=== PATIENT | male | born 1985 | race Caucasian/White ===

== ENCOUNTER 2017-12-01 10:17 | Emergency (ER) | payer BC, OTHER ==
[~2017-12-01] VITALS: Ht 185.4 cm; Wt 97.1 kg
[2017-12-01 14:27] VITALS: BP 148/123
== END 2017-12-01 14:28 | disposition home or self-care (01) ==
LOC: ER 10:17
DX: S00.83XA Contusion of other part of head, initial encounter (principal); S09.90XA Unspecified injury of head, initial encounter; J45.909 Unspecified asthma, uncomplicated; F17.210 Nicotine dependence, cigarettes, uncomplicated; V00.131A Fall from skateboard, initial encounter; Y93.89 Activity, other specified; Y92.89 Other specified places as the place of occurrence of the external cause; Y99.8 Other external cause status
CPT/HCPCS: 70450

== ENCOUNTER 2017-12-27 18:52 | Inpatient (IN) | payer BC ==
[~2017-12-27] VITALS: Ht 185.4 cm; Wt 100.2 kg
[2017-12-27] MEDS ORDERED: cloNIDine HCL 0.1 MG TAB ONE (19:28)
[2017-12-27] MEDS ORDERED: cloNIDine HCL 0.1 MG TAB PO ONE (20:00)
[2017-12-27] MEDS ORDERED: LORazepam 2MG/ML-1ML VIAL ONE ×2 (22:09→22:17)
[2017-12-27] MEDS ORDERED: LORazepam 2MG/ML-1ML VIAL IV ONE ×5 (22:15→22:30)
[2017-12-27] MEDS ORDERED: SODIUM CHLORIDE 0.9% 1,000 ML IV ONE (22:15)
[2017-12-27] MEDS ORDERED: SODIUM CHLORIDE 0.9% 1,000 ML IVB ONE (22:18)
[2017-12-27] MEDS ORDERED: LIDOCAINE W/ EPINEPHRINE 2% INJ 20ML VIAL ONE (22:38)
[2017-12-27 22:58] LABS: Basophils # (auto) 0 uL; Basophils % (auto) 0.3 % (0.0-2.0); Eosinophils # (auto) 0 uL; Eosinophils % (auto) 0.2 % (0.0-7.0); Hematocrit 41.6 % (41.0-53.0); Hemoglobin 14.3 g/dL (13.5-17.5); Lymphocytes # (auto) 0.6 uL; Lymphocytes % (auto) 5.1 % (10.0-50.0); Mean Corpuscular Hemoglobin 33.1 pg (28.0-32.0); Mean Corpuscular Hgb Conc. 34.4 g/dL (32.0-36.0); Mean Corpuscular Volume 96.2 fL (80.0-100.0); Monocytes % (auto) 8.4 % (0.0-12.0); Neutrophils # (auto) 9.9 uL; Nucleated Red Blood Cells % 0.1 %; Red Blood Cells 4.32 10^6/uL (4.5-5.90); Red Cell Distribution Width 13.7 % (11.8-14.3); White Blood Cell 11.6 10^3/uL (4.4-10.8)
[2017-12-27 23:04] LABS: Platelet Count (auto) 132 10^3/uL (140-450)
[2017-12-27 23:08] LABS: INR 1.04 (0.9-1.15); Partial Thromboplastin Time 24.7 sec (22.64-33.71); Prothrombin Time 11.3 sec (9.37-12.3)
[2017-12-27 23:21] LABS: Alanine Aminotransferase 106 U/L (16-61); Albumin 4.4 g/dL (3.4-5.0); Alkaline Phosphatase 81 U/L (45-117); Anion Gap 15 (5-15); Aspartate Aminotransferase 151 U/L (15-37); BUN/Creatinine Ratio 10.2; Bilirubin, Total 1.6 mg/dL (0.2-1.0); Blood Alcohol < 3.0 mg/dL (0-5); Blood Urea Nitrogen 10 mg/dL (7-18); Calcium 8.9 mg/dL (8.5-10.1); Carbon Dioxide 20 mmol/L (21-32); Chloride 99 mmol/L (98-107); GFR African American 113 mL/min; GFR Non-African American 93 mL/min; Glucose 136 mg/dL (74-106); Magnesium 1.7 mg/dL (1.6-2.6); Potassium 3.9 mmol/L (3.5-5.1); Sodium 134 mmol/L (136-145); Total Protein 8.1 g/dL (6.4-8.2)
[2017-12-27 23:40] LABS: Alcohol, Urine < 3.0 mg/dL (0-5); Amphetamine Screen, Urine NEGATIVE (NEGATIVE); Barbiturate Scree,Urine NEGATIVE (NEGATIVE); Benzodiazephine Screen, Urine NEGATIVE (NEGATIVE); Cannabinoid Screen, Urine POSITIVE (NEGATIVE); Cocaine Screen, Urine NEGATIVE (NEGATIVE); Opiate Scree,Urine NEGATIVE (NEGATIVE); Phencyclidine Screen, Urine NEGATIVE (NEGATIVE)
[2017-12-28] MEDS ORDERED: HYDROcodone-ACET 10/325MG TAB PO ONE (05:00)
[2017-12-28] MEDS ORDERED: MORPHINE SULFATE 4 MG/ML SYR/VIAL IV PRN (05:15)
[2017-12-28] MEDS ORDERED: LORazepam 2MG/ML-1ML VIAL IV PRN ×2 (05:15→17:45)
[2017-12-28] MEDS: SODIUM CHLORIDE 0.9% 1,000 ML IV SCH ×5 (05:15→11:00)
[2017-12-28] MEDS ORDERED: ONDANSETRON HCL 4 MG/2 ML VIAL IV PRN (05:15)
[2017-12-28] MEDS ORDERED: chlordiazePOXIDE HCL 25 MG CAP PO PRN (05:15)
[2017-12-28] MEDS ORDERED: TEMAZEPAM 15 MG CAP PO PRN (05:15)
[2017-12-28] MEDS ORDERED: THIAMINE INJ 100 MG, MULTIPLE VITAMIN 10 ML, FOLIC ACID 1 MG, MAGNESIUM SULF SDV 50% 8 ... IV ONE ×5 (05:15)
[2017-12-28] MEDS ORDERED: NITROGLYCERIN 0.4 MG SL TAB SL PRN (05:15)
[2017-12-28] MEDS ORDERED: ACETAMINOPHEN 325 MG TAB PO PRN (05:15)
[2017-12-28] MEDS ORDERED: cefTRIAXone 1GM/10ml IVPUSH 10 ML IV ONE (06:00)
[2017-12-28] MEDS ORDERED: MVI in SODIUM CHLORIDE 0.9% 1,010 ML ONE (06:02)
[2017-12-28] MEDS: THIAMINE HCL 100 MG TAB PO SCH (10:17)
[2017-12-28] MEDS: FOLIC ACID 1 MG TAB PO SCH (10:17)
[2017-12-28] MEDS: FAMOTIDINE 20 MG TAB PO SCH ×2 (10:17→21:30)
[2017-12-28] MEDS: NEOMYCIN-BACITRACIN-POLYM UNITDOSE PKG TOP OINT TOP SCH (10:17)
[2017-12-28] MEDS: ENOXAPARIN SOD 40 MG/0.4 ML SYRINGE SC SCH (10:17)
[2017-12-28] MEDS: HYDROcodone-ACET 5/325MG TAB PO PRN ×2 (12:19→18:45)
[2017-12-28] MEDS ORDERED: LIDOCAINE VISCOUS 2% 15ML UD MT PRN (13:00)
[2017-12-28] MEDS ORDERED: LIDOCAINE VISCOUS 2% 15ML UD MT ONE (13:00)
[2017-12-28] MEDS: MORPHINE SULFATE 4 MG/ML SYR/VIAL IV PRN ×2 (16:37→21:30)
[2017-12-28 17:10] VITALS: BP 154/107
[2017-12-28 17:30] VITALS: BP 154/107
[2017-12-28] MEDS ORDERED: cloNIDine HCL 0.1 MG TAB PO PRN (18:30)
[2017-12-28 20:00] VITALS: BP 145/82
[2017-12-28] MEDS ORDERED: LABETALOL HCL 5 MG/ML ML 20ML VIAL IV PRN ×3 (21:15)
[2017-12-28] MEDS: chlordiazePOXIDE HCL 5 MG CAP PO SCH (21:41)
[2017-12-28 22:00] VITALS: BP 145/82
[2017-12-29 05:00] VITALS: BP 142/83
[2017-12-29] MEDS: HYDROcodone-ACET 5/325MG TAB PO PRN ×4 (05:36→17:41)
[2017-12-29] MEDS: chlordiazePOXIDE HCL 5 MG CAP PO SCH ×3 (05:36→17:40)
[2017-12-29 07:27] LABS: Basophils # (auto) 0 uL; Eosinophils # (auto) 0.1 uL; Hemoglobin 11.3 g/dL (13.5-17.5); Lymphocytes # (auto) 0.6 uL; Mean Corpuscular Hemoglobin 34.3 pg (28.0-32.0); Mean Corpuscular Hgb Conc. 35.3 g/dL (32.0-36.0); Monocytes # (auto) 0.6 uL; Red Cell Distribution Width 13.3 % (11.8-14.3)
[2017-12-29 07:30] LABS: Basophils % (auto) 0.6 % (0.0-2.0); Eosinophils % (auto) 1.2 % (0.0-7.0); Lymphocytes % (auto) 9.8 % (10.0-50.0); Neutrophils # (auto) 4.5 uL; Neutrophils % (auto) 77.4 % (37.0-80.0); Platelet Count (auto) 110 10^3/uL (140-450); White Blood Cell 5.8 10^3/uL (4.4-10.8)
[2017-12-29 07:42] LABS: Albumin 3.9 g/dL (3.4-5.0); BUN/Creatinine Ratio 4.9; Calcium 8.7 mg/dL (8.5-10.1); Potassium 3.4 mmol/L (3.5-5.1)
[2017-12-29 07:51] LABS: Bilirubin, Total 1.7 mg/dL (0.2-1.0); Total Protein 6.9 g/dL (6.4-8.2)
[2017-12-29 08:00] VITALS: BP 126/74
[2017-12-29] MEDS ORDERED: cefTRIAXone 1GM/10ml IVPUSH 10 ML IV SCH (09:00)
[2017-12-29] MEDS ORDERED: POTASSIUM CHL 20 Meq TABLET PO ONE (09:00)
[2017-12-29] MEDS ORDERED: THIA100T11 PO (09:28)
[2017-12-29] MEDS ORDERED: NEOMOIN TOP (09:28)
[2017-12-29] MEDS: THIAMINE HCL 100 MG TAB PO SCH (09:30)
[2017-12-29] MEDS: FAMOTIDINE 20 MG TAB PO SCH (09:30)
[2017-12-29] MEDS: FOLIC ACID 1 MG TAB PO SCH (09:31)
[2017-12-29] MEDS: ENOXAPARIN SOD 40 MG/0.4 ML SYRINGE SC SCH (09:31)
[2017-12-29 09:37] VITALS: BP 126/74
[2017-12-29] MEDS: NEOMYCIN-BACITRACIN-POLYM UNITDOSE PKG TOP OINT TOP SCH (10:00)
[2017-12-29 12:30] VITALS: BP 150/93
[2017-12-29 17:16] VITALS: BP 126/84
== END 2017-12-29 19:32 | disposition home or self-care (01) | DRG 897 ==
LOC: ER 18:52 → TELE 18:53 → TELE-EAST 12-28 17:08
PROVIDERS: ADMIT Nurse Practitioner; ATTEND Internal Medicine
PROC: 0HQ0XZZ Repair Scalp Skin, External Approach (ICD-10-PCS; principal; 2017-12-27)
DX: F10.231 Alcohol dependence with withdrawal delirium (principal); G40.409 Other generalized epilepsy and epileptic syndromes, not intractable, without status epilepticus; K70.0 Alcoholic fatty liver; S00.03XA Contusion of scalp, initial encounter; K11.6 Mucocele of salivary gland; S05.91XA Unspecified injury of right eye and orbit, initial encounter; D17.79 Benign lipomatous neoplasm of other sites; F10.232 Alcohol dependence with withdrawal with perceptual disturbance; W18.39XA Other fall on same level, initial encounter; E87.6 Hypokalemia; F17.210 Nicotine dependence, cigarettes, uncomplicated; J45.909 Unspecified asthma, uncomplicated; M25.78 Osteophyte, vertebrae; F12.10 Cannabis abuse, uncomplicated; Y93.89 Activity, other specified; Y92.89 Other specified places as the place of occurrence of the external cause; Y99.8 Other external cause status; S49.91XA Unspecified injury of right shoulder and upper arm, initial encounter; D18.09 Hemangioma of other sites
CPT/HCPCS: 12004; 36415; 70450; 70551; 72125; 72141; 73030; 76705; 80053; 80307; 80320; 82962; 83735; 84443; 85025; 85610; 85730; 93005; 95819; 96361; 96374; 96375; 96376; 99291; J2405